=== PATIENT | male | born 1985 | race Caucasian/White ===

== ENCOUNTER 2019-10-06 19:45 | Emergency (ER) | payer OTHER, SELFPAY ==
[2019-10-06 20:08] VITALS: BP 131/82; PULSE 69; RESP 16; TEMP 36.7; O2SAT 99; BMI 24.4
[2019-10-06 20:39] LABS: Basophils % 0.2 %; Eosinophils # 0.1 10^3/uL (0.0-0.8); Eosinophils % 2.3 %; Hematocrit 41.7 % (42.0-52.0); Hemoglobin 13.5 g/dL (11.7-16.6); Lymphocytes # 1.8 10^3/uL (0.8-4.8); Mean Corpuscular HGB Conc 32.4 g/dL (30.0-36.0); Mean Corpuscular Hemoglobin 28.2 pg (28.0-34.0); Mean Corpuscular Volume 87.1 fL (80-94); Mean Platelet Volume 10.4 fL (7.4-10.4); Monocytes # 0.4 10^3/uL (0.2-0.9); Monocytes % 7.2 %; Neutrophils # 3.7 10^3/uL (1.8-7.7); Neutrophils % 60.1 %; Nucleated Red Blood Cells % 0 %; Platelet Count 202 10^3/cmm (130-400); Red Blood Count 4.79 10^6/uL (4.1-5.3); Red Cell Distribution Width 12.3 % (12.1-15.1); White Blood Count 6.1 10^3/uL (4.0-10.0)
[2019-10-06 20:55] LABS: Alanine Aminotransferase 23 U/L (0-41); Albumin Level 4.8 g/dL (3.5-5.2); Alkaline Phosphatase 61 IU/L (40-130); Anion Gap 16.3 (5-19); Aspartate Amino Transferase 20 U/L (0-40); Blood Urea Nitrogen 20 mg/dL (6-20); Calcium 9.9 mg/dL (8.5-10.5); Carbon Dioxide 24 mmol/L (22-29); Chloride 107 mmol/L (98-107); Globulin 2.3 g/dL (1.3-4.6); Glomerular Filtration Rate 63.6 mL/min (90-130); Glucose 105 mg/dL (65-115); Lipase 28 U/L (13-60); Osmolality Calculated 293 mOsm/kg (285-295); Potassium 4.3 mmol/L (3.5-5.1); Sodium 143 mmol/L (136-145); Total Bilirubin 0.2 mg/dL (0.15-1.2); Total Protein 7.1 g/dL (6.6-8.7)
--- NOTE | 2019-10-06 23:16 | ED_ITS ---
HPI - Abdominal Pain General: Chief Complaint: Abdominal Pain Stated Complaint: back pain; abd pain Time Seen by Provider: 10/06/19 23:15 Source: patient Mode of arrival: ambulatory Limitations: no limitations History of Present Illness: HPI narrative: Patient comes in today for complaints of lower abdominal pain and intermittent groin pain. Patient states that for the last year he has had been treated with prostatitis 2 or 3 times. Patient is waiting to get into see the urologist, Dr. Rivera. Patient denies any significant fever. Patient finished Cipro yesterday for symptoms. Patient reports that he has had some improvement in the pain but continues to have discomfort. Patient appears well. Patient appears in mild pain. Review of Systems General: Reports: 10 or more systems reviewed and unremarkable except in HPI and below GI: Reports: abdominal pain : Reports: other [facility] ED PFSH: Medical History (Updated 10/07/19 @ 00:59 by ALDEN Salgado) Anxiety Surgical History History of surgery on upper extremity Family History Other Heart disease Hypertension Social History Smoking and tobacco status: never smoked Alcohol intake: never History of recent travel: No Physical Exam Const: COMMON NORMALS: no acute distress and patient oriented x3 GENERAL APPEARANCE: cooperative HENMT: COMMON NORMALS: normocephalic, TM's normal bilaterally and Normal external nose present HEAD & SCALP: normal to inspection and normocephalic NOSE: Normal external nose present TYMPANIC MEMBRANE: TM's normal bilaterally MOUTH: Normal oral and palatal mucosa present THROAT: posterior oropharynx normal Eye: GENERAL EYE: appearance normal, both eyes and all related structures Neck/C-Spine: COMMON NORMALS: full ROM Lymph: LYMPHATIC: no lymphadenopathy noted Chest: COMMONS NORMALS: normal inspection of the chest Resp: COMMON NORMALS: normal respiratory effort EFFORT & INSPECTION: Yes able to speak in complete sentences Cardio: COMMON NORMALS: regular rate and regular rhythm RATE: regular rate RHYTHM: regular rhythm GI: COMMON NORMALS: non-tender : COMMON NORMALS: Yes no CVA tenderness BLADDER/KIDNEY EXAM: Yes no CVA tenderness Back/Pelvis: COMMON NORMALS: no CVA tenderness and thoracic and lumbar spine normal to inspection Extremity: COMMON NORMALS: normal to inspection Neuro: COMMON NORMALS: patient oriented x3 and moves all extremities Psych: COMMON NORMALS: mental status grossly normal and cooperative Skin: COMMON NORMALS: no rashes or lesions noted GENERAL SKIN EXAM: no rashes or lesions noted Course Vital Signs: Vital signs: Vital Signs Temperature 98.1 F 10/06/19 20:08 Pulse Rate 63 10/06/19 23:23 Respiratory Rate 16 10/06/19 23:23 Blood Pressure 132/77 10/06/19 23:23 Pulse Oximetry 100 10/06/19 23:23 MDM - Abdominal Pain MDM Narrative: Medical decision making narrative: Patient comes in today for concerns of persistent prostate infection. Patient has an appointment to see the urologist on Thursday but due to discomfort and pain he came into for evaluation. Patient states that he finished his Cipro yesterday but his pain has only improved slightly. Patient had been on the antibiotic for 7 to 10 days. Patient appears well. Patient appears in no acute distress. Respirations are even lungs are clear to auscultation. Vital signs are normal. Differential diagnosis includes prostatitis, hernia, appendicitis, renal calculi with obstruction. Laboratory values noted no elevation white count. Patient did have some slight elevation in creatinine at 1.3. CT scan of the abdomen and pelvis noted no obstruction of the bowel, appendicitis, or significant pelvic inflammatory process. Reviewed exam with patient with recommendations for continued treatment with Bactrim twice daily for the next 28 days for chronic prostatitis, and some medication for pain. Patient reported understanding agreed to plan. Patient is also continue with follow-up appointment with urologist. Lab Data: Labs: Lab Results 10/06/19 10/06/19 Range/Units 20:34 20:34 WBC 6.1 (4.0-10.0) 10^3/ uL RBC 4.79 (4.1-5.3) 10^6/u L Hgb 13.5 (11.7-16.6) g/dL Hct 41.7 L (42.0-52.0) % MCV 87.1 (80-94) fL MCH 28.2 (28.0-34.0) pg MCHC 32.4 (30.0-36.0) g/dL RDW 12.3 (12.1-15.1) % Plt Count 202 (130-400) 10^3/c mm MPV 10.4 (7.4-10.4) fL Neut % (Auto) 60.1 % Lymph % (Auto) 30.0 % [place] % (Auto) 7.2 % Eos % (Auto) 2.3 % Baso % (Auto) 0.2 % Neut # (Auto) 3.7 (1.8-7.7) 10^3/u L Lymph # (Auto) 1.8 (0.8-4.8) 10^3/u L [place] # (Auto) 0.4 (0.2-0.9) 10^3/u L Eos # (Auto) 0.1 (0.0-0.8) 10^3/u L Baso # (Auto) 0.0 (0.0-0.1) 10^3/u L Nucleated RBC % (a uto) 0 % Nucleated RBCs # 0.0 /100WBC Sodium 143 (136-145) mmol/L Potassium 4.3 (3.5-5.1) mmol/L Chloride 107 (98-107) mmol/L Carbon Dioxide 24 (22-29) mmol/L Anion Gap 16.3 (5-19) BUN 20 (6-20) mg/dL Creatinine 1.3 H (0.7-1.2) mg/dL GFR Calculation 63.6 L (90-130) mL/min Glucose 105 (65-115) mg/dL Calculated Osmolal ity 293 (285-295) mOsm/k g Calcium 9.9 (8.5-10.5) mg/dL Total Bilirubin 0.2 (0.15-1.2) mg/dL AST 20 (0-40) U/L ALT 23 (0-41) U/L Alkaline Phosphata se 61 (40-130) IU/L Total Protein 7.1 (6.6-8.7) g/dL Albumin 4.8 (3.5-5.2) g/dL Globulin 2.3 (1.3-4.6) g/dL Lipase 28 (13-60) U/L Discharge Plan Discharge Patient Disposition: Home, Self-Care Clinical Impression: Prostatalgia Condition: Stable Prescriptions: New Bactrim DS 800-160 mg tablet 1 tab PO BID 28 Days Qty: 56 RF: 0 hydrocodone-acetaminophen 5-325 mg tablet 1 tab PO BID PRN (Reason: pain (scale score 7-10)) Qty: 10 RF: 0 No Action hydroxyzine HCl 25 mg tablet 25 mg PO Q8H PRN (Reason: anxiety) Qty: 45 RF: 0 bupropion HCl [Wellbutrin XL] 300 mg tablet extended release 24 hr 300 mg PO QAM 30 Days Qty: 30 RF: 1 Discharge Orders: Discharge Order (Routine); Ordered 10/07/19 Ordered By: Aaron Bone Referrals: Shruthi Landers FNP [Primary Care Provider] - Aster Vang DO [Family Provider] - Discharge Diet: Usual diet Discharge Activity: Increase activity as tolerated Patient Instructions: Prostatitis (ED) Activity Restrictions/Additional Instructions: Drink plenty of fluids. Activity as tolerated. Follow-up with urologist at scheduled appointment on Thursday. Return to the ER for high fever or worsening symptoms. 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
[2019-10-06 23:23] VITALS: BP 132/77; PULSE 63; RESP 16; O2SAT 100
--- NOTE | 2019-10-06 23:24 | CTR_ITS ---
PROCEDURE INFORMATION: Exam: CT Abdomen And Pelvis With Contrast Exam date and time: 10/06/2019 11:25 PM Age: 33 years old Clinical indication: Pain; Additional info: Lower abd pain, HX of prostatitis TECHNIQUE: Imaging protocol: Computed tomography of the abdomen and pelvis with intravenous contrast. Contrast material: OMNI 300; Contrast volume: 95 ml; Contrast route: 18G; COMPARISON: [facility] [place] Hip RIGHT 2-3 views 12/31/2017 11:16 AM RADIATION DOSE METRICS: Total DLP: 754.88 mGy-cm FINDINGS: Liver: Normal. No mass. Gallbladder and bile ducts: Normal. No calcified stones. No ductal dilation. Pancreas: Normal. No ductal dilation. Spleen: Normal. No splenomegaly. Adrenals: Normal. No mass. Kidneys and ureters: Right kidney punctate nonobstructive calyceal stone. Stomach and bowel: Unremarkable. No obstruction. No mucosal thickening. Appendix: No evidence of appendicitis. Intraperitoneal space: Unremarkable. No free air. No significant fluid collection. Vasculature: Unremarkable. No abdominal aortic aneurysm. Lymph nodes: Unremarkable. No enlarged lymph nodes. Bladder: Unremarkable as visualized. Reproductive: Unremarkable as visualized. Bones/joints: Right hip orthopedic caitlin along with a chronic right inferior pubic ramus fracture. Soft tissues: Unremarkable. CT/CT abdomen pelvis w con* [id number] IMPRESSION: 1. Negative for acute inflammatory process. 2. Right kidney punctate nonobstructive calyceal stone. Radiation Dose CTDIVOL = (mGy): DLP = 754.88 (mGy-cm)
[2019-10-07] MEDS: iohexol 300 mg/mL 100 mL Btl IV (00:17)
[2019-10-07] MEDS: HYDROcodone-acetaminophen 5-325 mg Tablet 1 TAB PO (01:20)
[2019-10-07] MEDS: sulfamethoxazole-trimeth DS 160-800 mg Tablet 1 TAB PO (01:20)
[2019-10-07 01:27] VITALS: PULSE 62; RESP 16; O2SAT 98
== END 2019-10-07 01:25 | disposition home or self-care (01) ==
PROVIDERS: Emergency Provider Nurse Practitioner Family; Family Provider Family Medicine; PCP Nurse Practitioner
DX: N42.89 Other specified disorders of prostate (principal)
CPT/HCPCS: 12345; 36415; 74177; 80053; 83690; 85025; 99282; 99283; Q9967

== ENCOUNTER → 2020-06-22 07:30 | Outpatient (BNVA) | payer SELFPAY | PROVIDERS: Family Provider Family Medicine; PCP Nurse Practitioner; Visit Provider Nurse Practitioner | DX: Z20.822 Contact with and (suspected) exposure to COVID-19 (principal) | CPT/HCPCS: 87635 ==